=== PATIENT | male | born 1940 | race Caucasian/White ===

== ENCOUNTER 2024-02-13 13:48 | Outpatient (CLI) | payer BC, MEDICARE | END 2024-02-13 13:49 | disposition home or self-care (01) | LOC: BICMAMMO 13:48 | PROVIDERS: ATTEND Family Medicine Sports Medicine | DX: Z13.820 Encounter for screening for osteoporosis (principal); S52.532D Colles' fracture of left radius, subsequent encounter for closed fracture with routine healing; M81.0 Age-related osteoporosis without current pathological fracture | CPT/HCPCS: 77080 ==

== ENCOUNTER 2024-04-03 11:38 | Inpatient (IN) | payer BC, MEDICARE ==
[2024-04-03 13:16] LABS: Hematocrit 35.7 % (42.0-52.0); Hemoglobin 12.6 g/dL (14.0-18.0); Mean Corpuscular HGB CONC 35.3 g/dL (32.0-36.0); Mean Corpuscular Hemoglobin 32.1 pg (27.0-31.0); Mean Corpuscular Volume 90.8 fL (78.0-98.0); Platelet Count 136 10x3/uL (130-400); RBC Distribution Width 12.8 % (11.5-14.5); Red Blood Cell (RBC) Count 3.93 mill/uL (4.70-6.10)
[2024-04-03 13:36] LABS: ALT (SGPT) 13 U/L (8-55); AST (SGOT) 21 U/L (5-34); Albumin 3.7 g/dL (3.4-4.8); Alkaline Phosphatase 90 U/L (40-110); Anion Gap 11 mmol/L (10-20); BUN (Urea Nitrogen) 16 mg/dL (8.4-25.7); Calc. Creatinine Clearance 0 mL/min (70-130); Calcium 9.2 mg/dL (7.8-10.44); Carbon Dioxide 20 mmol/L (23-31); Chloride 100 mmol/L (98-107); Estimated GFR 90; Globulin 2.5 g/dL (2.4-3.5); Glucose 116 mg/dL (83-110); Potassium 4.3 mmol/L (3.5-5.1); Protein, Total 6.2 g/dL (5.8-8.1); Sodium 127 mmol/L (136-145)
[2024-04-03 13:46] LABS: Bacteria/HPF None Seen HPF (None Seen); Bilirubin Negative (Negative); Blood, Urine Negative (Negative); CAUTI Indications for Culture Dysuria,urgency,freq; Clarity Clear (Clear); Glucose, Urine (Dipstick) Normal (Negative); Ketone, Urine 10 mg/dL (Negative); Leukocyte 250 Leu/uL (Negative); Nitrite Negative (Negative); Protein, Urine (Dipstick) 30 mg/dL (Neg-Trace); Specific Gravity, Urine 1.027 (1.002-1.036); Squamous Epithelial None Seen HPF (0-3); WBC/HPF Greater than 50 HPF (0-3)
[2024-04-03 13:47] LABS: Urine Culture Reflex Yes Yes
[2024-04-03 14:06] LABS: Band 3 % (5-11); Burr Cells MODERATE= 6-15 cells HPF (0-1); Lymphocytes 19 % (21-51); Monocytes 3 % (0-10); Neutrophil 75 % (42-75); Platelet Adequacy Comment Platelets Normal
[2024-04-03 17:55] VITALS: BMI 26.1
[2024-04-03] MEDS ORDERED: Acetaminophen 650 MG Suppository PR PRN (17:57)
[2024-04-03] MEDS ORDERED: Ondansetron ODT 4 MG TAB PO PRN (17:57)
[2024-04-03] MEDS ORDERED: Ondansetron PF 4 MG/2 ML Vial IVP PRN (17:57)
[2024-04-03] MEDS: Sodium Chloride 0.9% 1,000 ML IV SCH (18:20)
[2024-04-03] MEDS: hydrALAZINE 25 MG TAB PO SCH (18:54)
[2024-04-03] MEDS: Flecainide Acetate 100 MG TAB PO SCH (20:23)
[2024-04-03] MEDS: Apixaban 5 MG TAB PO SCH (20:23)
[2024-04-03] MEDS: Atorvastatin Calcium 10 MG TAB PO SCH (20:23)
[2024-04-03] MEDS: Famotidine 20 MG TAB PO SCH (20:23)
[2024-04-03] MEDS: Melatonin 3 MG TAB PO PRN (20:23)
[2024-04-03] MEDS: Lorazepam 2 MG/ML VIAL SLOW IVP SCH (20:39)
[2024-04-03] MEDS ORDERED: hydrALAZINE 20 MG/ML VIAL SLOW IVP SCH (22:45)
[2024-04-03] MEDS: hydrALAZINE 20 MG/ML VIAL SLOW IVP PRN (23:22)
[2024-04-04] MEDS: Losartan 25 MG TAB PO SCH (08:27)
[2024-04-04] MEDS: Tamsulosin HCl 0.4 MG CAP PO SCH (08:28)
[2024-04-04] MEDS: Sodium Chloride 1 GM TAB PO SCH (08:29)
[2024-04-04 08:54] LABS: Hematocrit 34.8 % (42.0-52.0); Hemoglobin 12.3 g/dL (14.0-18.0); Mean Corpuscular HGB CONC 35.3 g/dL (32.0-36.0); Mean Corpuscular Hemoglobin 32.8 pg (27.0-31.0); Mean Corpuscular Volume 92.8 fL (78.0-98.0); Platelet Count 146 10x3/uL (130-400); RBC Distribution Width 12.7 % (11.5-14.5); Red Blood Cell (RBC) Count 3.75 mill/uL (4.70-6.10)
[2024-04-04 09:14] LABS: Anion Gap 10 mmol/L (10-20); BUN (Urea Nitrogen) 12 mg/dL (8.4-25.7); Calc. Creatinine Clearance 96 mL/min (70-130); Calcium 8.9 mg/dL (7.8-10.44); Carbon Dioxide 19 mmol/L (23-31); Chloride 102 mmol/L (98-107); Estimated GFR 93; Glucose 95 mg/dL (83-110); Potassium 3.8 mmol/L (3.5-5.1); Sodium 127 mmol/L (136-145)
[2024-04-04 09:40] LABS: Anisocytosis SLIGHT = 6-15 cells HPF (0-5); Band 4 % (5-11); Burr Cells SLIGHT = 2-5 cells HPF (0-1); Eosinophils 1 % (0-10); Lymphocytes 21 % (21-51); Macrocytosis SLIGHT = 6-15 cells HPF (0-5); Monocytes 5 % (0-10); Neutrophil 69 % (42-75); Ovalocytes SLIGHT = 2-5 cells HPF (0-1); Platelet Adequacy Comment Platelets Normal; Poikilocytosis SLIGHT = 6-15 cells HPF (0-5); Polychromasia SLIGHT = 2-3 cells HPF (0-2)
[2024-04-04] MEDS: Sodium Chloride 0.9% 1,000 ML IV SCH (10:30)
[2024-04-04] MEDS: Sodium Bicarbonate Tab 325 MG TAB PO SCH ×2 (11:21→14:32)
[2024-04-04 12:41] LABS: Anion Gap 14 mmol/L (10-20); BUN (Urea Nitrogen) 13 mg/dL (8.4-25.7); Calc. Creatinine Clearance 93 mL/min (70-130); Calcium 9.1 mg/dL (7.8-10.44); Carbon Dioxide 18 mmol/L (23-31); Chloride 103 mmol/L (98-107); Estimated GFR 92; Glucose 106 mg/dL (83-110); Potassium 3.8 mmol/L (3.5-5.1); Sodium 131 mmol/L (136-145)
[2024-04-05 06:30] LABS: Hematocrit 32.2 % (42.0-52.0); Hemoglobin 11.4 g/dL (14.0-18.0); Mean Corpuscular HGB CONC 35.4 g/dL (32.0-36.0); Mean Corpuscular Hemoglobin 32.8 pg (27.0-31.0); Mean Corpuscular Volume 92.5 fL (78.0-98.0); Mean Platelet Volume 8.1 fL (7.4-10.4); Platelet Count 146 10x3/uL (130-400); Red Blood Cell (RBC) Count 3.48 mill/uL (4.70-6.10)
[2024-04-05 06:58] LABS: Eosinophils 4 % (0-10); Hypochromia SLIGHT = 6-15 cells HPF (0-5); Lymphocytes 28 % (21-51); Monocytes 8 % (0-10); Neutrophil 59 % (42-75); Platelet Adequacy Comment Platelets Normal; Reactive Lymphocytes 1 % (0-10)
[2024-04-05 07:14] LABS: Anion Gap 9 mmol/L (10-20); BUN (Urea Nitrogen) 14 mg/dL (8.4-25.7); Calc. Creatinine Clearance 92 mL/min (70-130); Calcium 8.5 mg/dL (7.8-10.44); Carbon Dioxide 19 mmol/L (23-31); Chloride 107 mmol/L (98-107); Estimated GFR 92; Glucose 145 mg/dL (83-110); Potassium 3.5 mmol/L (3.5-5.1); Sodium 131 mmol/L (136-145)
[2024-04-05] MEDS ORDERED: Benzocaine/Menthol 1 LOZ LOZ PO PRN (11:31)
[2024-04-05] MEDS: Fluconazole 100 MG TAB PO SCH (20:28)
[2024-04-05] MEDS: traMADol HCl 50 MG TAB PO PRN (23:17)
[2024-04-06] MEDS: hydrALAZINE 25 MG TAB PO SCH ×2 (01:19→18:40)
[2024-04-06 06:46] LABS: Hematocrit 32.2 % (42.0-52.0); Hemoglobin 11.5 g/dL (14.0-18.0); Mean Corpuscular HGB CONC 35.7 g/dL (32.0-36.0); Mean Corpuscular Volume 92.3 fL (78.0-98.0); Mean Platelet Volume 7.6 fL (7.4-10.4); Platelet Count 136 10x3/uL (130-400); Red Blood Cell (RBC) Count 3.49 mill/uL (4.70-6.10)
[2024-04-06 06:53] LABS: Anion Gap 10 mmol/L (10-20); BUN (Urea Nitrogen) 12 mg/dL (8.4-25.7); Calc. Creatinine Clearance 101 mL/min (70-130); Calcium 8.5 mg/dL (7.8-10.44); Carbon Dioxide 19 mmol/L (23-31); Chloride 104 mmol/L (98-107); Estimated GFR 94; Glucose 105 mg/dL (83-110); Potassium 3.7 mmol/L (3.5-5.1); Sodium 129 mmol/L (136-145)
[2024-04-06 07:06] LABS: Band 1 % (5-11); Eosinophils 4 % (0-10); Hypochromia SLIGHT = 6-15 cells HPF (0-5); Lymphocytes 13 % (21-51); Monocytes 5 % (0-10); Neutrophil 77 % (42-75); Platelet Adequacy Comment Platelets Normal; Poikilocytosis SLIGHT = 6-15 cells HPF (0-5)
[2024-04-06] MEDS: Fluconazole 100 MG TAB PO SCH (08:43)
[2024-04-06] MEDS: Sodium Bicarbonate Tab 325 MG TAB PO SCH (15:05)
[2024-04-07 07:08] LABS: Hematocrit 31.5 % (42.0-52.0); Hemoglobin 11.1 g/dL (14.0-18.0); Mean Corpuscular HGB CONC 35.2 g/dL (32.0-36.0); Mean Corpuscular Hemoglobin 32.5 pg (27.0-31.0); Mean Corpuscular Volume 92.1 fL (78.0-98.0); Mean Platelet Volume 7.9 fL (7.4-10.4); Platelet Count 144 10x3/uL (130-400); RBC Distribution Width 12.9 % (11.5-14.5); Red Blood Cell (RBC) Count 3.42 mill/uL (4.70-6.10)
[2024-04-07] MEDS: ALENDRONATE 70 MG TAB PO SCH (07:15)
[2024-04-07 07:19] LABS: Anion Gap 10 mmol/L (10-20); BUN (Urea Nitrogen) 12 mg/dL (8.4-25.7); Calc. Creatinine Clearance 108 mL/min (70-130); Calcium 8.7 mg/dL (7.8-10.44); Carbon Dioxide 21 mmol/L (23-31); Chloride 102 mmol/L (98-107); Estimated GFR 96; Glucose 95 mg/dL (83-110); Potassium 3.7 mmol/L (3.5-5.1); Sodium 129 mmol/L (136-145)
[2024-04-07 07:34] LABS: Eosinophils 3 % (0-10); Hypochromia SLIGHT = 6-15 cells HPF (0-5); Lymphocytes 17 % (21-51); Monocytes 10 % (0-10); Neutrophil 65 % (42-75); Platelet Adequacy Comment Platelets Normal; Reactive Lymphocytes 3 % (0-10)
[2024-04-07] MEDS: Amlodipine 5 MG TAB PO SCH (10:39)
[2024-04-07] MEDS: Acetaminophen 325 MG TAB PO PRN (14:22)
[2024-04-08 06:49] LABS: Anion Gap 10 mmol/L (10-20); BUN (Urea Nitrogen) 14 mg/dL (8.4-25.7); Calc. Creatinine Clearance 101 mL/min (70-130); Calcium 8.6 mg/dL (7.8-10.44); Carbon Dioxide 22 mmol/L (23-31); Chloride 102 mmol/L (98-107); Estimated GFR 94; Glucose 106 mg/dL (83-110); Potassium 3.7 mmol/L (3.5-5.1); Sodium 130 mmol/L (136-145)
[2024-04-08] MEDS: Amlodipine 5 MG TAB PO SCH (08:13)
[2024-04-09 07:01] LABS: Anion Gap 11 mmol/L (10-20); BUN (Urea Nitrogen) 15 mg/dL (8.4-25.7); Calc. Creatinine Clearance 93 mL/min (70-130); Carbon Dioxide 22 mmol/L (23-31); Chloride 101 mmol/L (98-107); Estimated GFR 92; Glucose 109 mg/dL (83-110); Potassium 3.7 mmol/L (3.5-5.1); Sodium 130 mmol/L (136-145)
[2024-04-09] MEDS: Amlodipine 5 MG TAB PO SCH (10:07)
[2024-04-09] MEDS: Docusate 100 MG CAP PO PRN (15:14)
[2024-04-09] MEDS: Sodium Chloride 1 GM TAB PO SCH (15:14)
[2024-04-10 06:44] LABS: Anion Gap 10 mmol/L (10-20); BUN (Urea Nitrogen) 16 mg/dL (8.4-25.7); Calc. Creatinine Clearance 98 mL/min (70-130); Calcium 8.8 mg/dL (7.8-10.44); Carbon Dioxide 24 mmol/L (23-31); Chloride 99 mmol/L (98-107); Estimated GFR 93; Glucose 122 mg/dL (83-110); Potassium 3.8 mmol/L (3.5-5.1); Sodium 129 mmol/L (136-145)
[2024-04-10] MEDS: Amlodipine 5 MG TAB PO SCH (08:51)
[2024-04-10] MEDS: Albumin 25% 25 GM (100 mL) BOT IVPB SCH (13:11)
[2024-04-10 13:35] VITALS: BMI 26.1
[2024-04-11 10:47] LABS: Albumin 2.9 g/dL (3.4-4.8); Anion Gap 8 mmol/L (10-20); BUN (Urea Nitrogen) 17 mg/dL (8.4-25.7); BUN/Creatinine Ratio 22.97; Calc. Creatinine Clearance 84 mL/min (70-130); Calcium 9.2 mg/dL (7.8-10.44); Carbon Dioxide 24 mmol/L (23-31); Chloride 101 mmol/L (98-107); Estimated GFR 89; Glucose 137 mg/dL (83-110); Phosphorus 2.1 mg/dL (2.3-4.7); Sodium 129 mmol/L (136-145)
[2024-04-11] MEDS: PHOS-NAK 1 PKT PACK PO SCH (17:18)
[2024-04-11] MEDS: Albumin 25% 25 GM (100 mL) BOT IVPB SCH (17:18)
[2024-04-11] MEDS: Amoxicillin/Potassium Clav 875 MG TAB PO SCH (20:51)
[2024-04-12 07:33] LABS: Albumin 3.3 g/dL (3.4-4.8); Anion Gap 10 mmol/L (10-20); BUN (Urea Nitrogen) 15 mg/dL (8.4-25.7); BUN/Creatinine Ratio 23.81; Calc. Creatinine Clearance 99 mL/min (70-130); Calcium 9.2 mg/dL (7.8-10.44); Carbon Dioxide 23 mmol/L (23-31); Chloride 103 mmol/L (98-107); Estimated GFR 94; Glucose 93 mg/dL (83-110); Phosphorus 2.7 mg/dL (2.3-4.7); Sodium 132 mmol/L (136-145)
[2024-04-12] MEDS: Amlodipine 10 MG TAB PO SCH (08:33)
[2024-04-12] MEDS: Saccharomyces boulardii 250 MG CAP PO SCH (08:33)
[2024-04-13 06:51] LABS: Anion Gap 8 mmol/L (10-20); BUN (Urea Nitrogen) 15 mg/dL (8.4-25.7); Calc. Creatinine Clearance 98 mL/min (70-130); Calcium 9.4 mg/dL (7.8-10.44); Carbon Dioxide 24 mmol/L (23-31); Chloride 104 mmol/L (98-107); Estimated GFR 93; Glucose 101 mg/dL (83-110); Potassium 3.9 mmol/L (3.5-5.1); Sodium 132 mmol/L (136-145)
[2024-04-13 18:33] LABS: Bilirubin Negative (Negative); Blood, Urine Negative (Negative); Clarity Turbid (Clear); Glucose, Urine (Dipstick) Normal (Negative); Ketone, Urine Negative (Negative); Leukocyte 25 Leu/uL (Negative); Nitrite Negative (Negative); Protein, Urine (Dipstick) Negative (Neg-Trace); Specific Gravity, Urine 1.019 (1.002-1.036); Urobilinogen 12 mg/dL (Less than 2); pH, Urine 7.5 (5.0-9.0)
[2024-04-13 18:43] LABS: RBC/HPF None Seen HPF (0-3); Squamous Epithelial None Seen HPF (0-3); WBC/HPF None Seen HPF (0-3)
[2024-04-14 06:59] LABS: Anion Gap 10 mmol/L (10-20); BUN (Urea Nitrogen) 18 mg/dL (8.4-25.7); Calc. Creatinine Clearance 92 mL/min (70-130); Calcium 9.4 mg/dL (7.8-10.44); Carbon Dioxide 22 mmol/L (23-31); Chloride 103 mmol/L (98-107); Estimated GFR 92; Glucose 106 mg/dL (83-110); Sodium 131 mmol/L (136-145)
[2024-04-15 07:04] LABS: Anion Gap 7 mmol/L (10-20); BUN (Urea Nitrogen) 19 mg/dL (8.4-25.7); Calc. Creatinine Clearance 92 mL/min (70-130); Calcium 9.4 mg/dL (7.8-10.44); Carbon Dioxide 23 mmol/L (23-31); Chloride 105 mmol/L (98-107); Estimated GFR 92; Glucose 104 mg/dL (83-110); Potassium 3.9 mmol/L (3.5-5.1); Sodium 131 mmol/L (136-145)
[2024-04-15] MEDS: Tolvaptan 15 MG TAB PO SCH (08:49)
[2024-04-15 15:05] LABS: Anion Gap 10 mmol/L (10-20); BUN (Urea Nitrogen) 19 mg/dL (8.4-25.7); Calc. Creatinine Clearance 92 mL/min (70-130); Calcium 9.3 mg/dL (7.8-10.44); Carbon Dioxide 24 mmol/L (23-31); Chloride 101 mmol/L (98-107); Estimated GFR 92; Glucose 119 mg/dL (83-110); Potassium 4.3 mmol/L (3.5-5.1); Sodium 131 mmol/L (136-145)
[2024-04-16 08:10] LABS: Hematocrit 34.4 % (42.0-52.0); Hemoglobin 11.7 g/dL (14.0-18.0); Mean Corpuscular Hemoglobin 32.3 pg (27.0-31.0); Mean Platelet Volume 7.8 fL (7.4-10.4); Platelet Count 328 10x3/uL (130-400); Red Blood Cell (RBC) Count 3.62 mill/uL (4.70-6.10)
[2024-04-16 08:23] LABS: Anion Gap 12 mmol/L (10-20); BUN (Urea Nitrogen) 14 mg/dL (8.4-25.7); Calc. Creatinine Clearance 87 mL/min (70-130); Calcium 9.3 mg/dL (7.8-10.44); Carbon Dioxide 25 mmol/L (23-31); Chloride 107 mmol/L (98-107); Estimated GFR 90; Glucose 98 mg/dL (83-110); Potassium 4.1 mmol/L (3.5-5.1); Sodium 140 mmol/L (136-145)
[2024-04-16 08:36] LABS: Burr Cells SLIGHT = 2-5 cells HPF (0-1); Eosinophils 6 % (0-10); Lymphocytes 21 % (21-51); Monocytes 7 % (0-10); Neutrophil 65 % (42-75); Platelet Adequacy Comment Platelets Normal; Schistocytes SLIGHT = 2-5 cells HPF (0-1)
[2024-04-16] MEDS: Sodium Chloride 1 GM TAB PO SCH (10:16)
[2024-04-17 08:05] LABS: Anion Gap 10 mmol/L (10-20); BUN (Urea Nitrogen) 17 mg/dL (8.4-25.7); Calc. Creatinine Clearance 96 mL/min (70-130); Calcium 9.1 mg/dL (7.8-10.44); Carbon Dioxide 22 mmol/L (23-31); Chloride 104 mmol/L (98-107); Estimated GFR 93; Glucose 91 mg/dL (83-110); Potassium 3.9 mmol/L (3.5-5.1); Sodium 132 mmol/L (136-145)
[2024-04-17 08:12] LABS: Hemoglobin 11.3 g/dL (14.0-18.0); Mean Corpuscular HGB CONC 34.2 g/dL (32.0-36.0); Mean Corpuscular Hemoglobin 32.5 pg (27.0-31.0); Mean Corpuscular Volume 94.8 fL (78.0-98.0); Platelet Count 316 10x3/uL (130-400); RBC Distribution Width 13.1 % (11.5-14.5); Red Blood Cell (RBC) Count 3.48 mill/uL (4.70-6.10)
[2024-04-17 10:29] LABS: Band 1 % (5-11); Burr Cells MODERATE= 6-15 cells HPF (0-1); Eosinophils 2 % (0-10); Lymphocytes 19 % (21-51); Monocytes 5 % (0-10); Neutrophil 72 % (42-75); Platelet Adequacy Comment Platelets Normal; Poikilocytosis SLIGHT = 6-15 cells HPF (0-5); Reactive Lymphocytes 1 % (0-10)
[2024-04-18 06:43] LABS: Hemoglobin 11.4 g/dL (14.0-18.0); Mean Corpuscular HGB CONC 34.5 g/dL (32.0-36.0); Mean Corpuscular Hemoglobin 32.7 pg (27.0-31.0); Mean Corpuscular Volume 94.6 fL (78.0-98.0); Platelet Count 317 10x3/uL (130-400); RBC Distribution Width 13.1 % (11.5-14.5); Red Blood Cell (RBC) Count 3.49 mill/uL (4.70-6.10)
[2024-04-18 06:50] LABS: Anion Gap 8 mmol/L (10-20); BUN (Urea Nitrogen) 19 mg/dL (8.4-25.7); Calc. Creatinine Clearance 93 mL/min (70-130); Calcium 9.1 mg/dL (7.8-10.44); Carbon Dioxide 25 mmol/L (23-31); Chloride 102 mmol/L (98-107); Estimated GFR 92; Glucose 88 mg/dL (83-110); Sodium 131 mmol/L (136-145)
[2024-04-18 07:22] LABS: Burr Cells MODERATE= 6-15 cells HPF (0-1); Eosinophils 2 % (0-10); Lymphocytes 33 % (21-51); Monocytes 4 % (0-10); Neutrophil 59 % (42-75); Platelet Adequacy Comment Platelets Normal; Poikilocytosis MODERATE=16-30 cells HPF (0-5); Schistocytes SLIGHT = 2-5 cells HPF (0-1)
[2024-04-18] MEDS: Sodium Chloride 1 GM TAB PO SCH (08:24)
[2024-04-18] MEDS: Torsemide 10 MG TAB PO SCH (10:55)
[2024-04-19 07:53] VITALS: TEMP 97.9
[2024-04-19 09:49] LABS: Anion Gap 9 mmol/L (10-20); BUN (Urea Nitrogen) 20 mg/dL (8.4-25.7); Calc. Creatinine Clearance 88 mL/min (70-130); Calcium 9.1 mg/dL (7.8-10.44); Carbon Dioxide 26 mmol/L (23-31); Chloride 101 mmol/L (98-107); Estimated GFR 90; Glucose 124 mg/dL (83-110); Potassium 3.9 mmol/L (3.5-5.1); Sodium 132 mmol/L (136-145)
[2024-04-19 11:49] VITALS: BP 102/59
[2024-04-20] MEDS ORDERED: Amlodipine 5 MG TAB PO SCH (09:00)
== END 2024-04-19 17:17 | disposition critical access hospital (66) | DRG 643 ==
LOC: ERS 11:38 → T4-A 16:01 → UNDODISIN 04-12 12:50
PROVIDERS: ADMIT Family Medicine; ATTEND Family Medicine
PROC: 30233J1 Transfusion of Nonautologous Serum Albumin into Peripheral Vein, Percutaneous Approach (ICD-10-PCS; principal; 2024-04-10)
DX: E22.2 Syndrome of inappropriate secretion of antidiuretic hormone (principal); G93.41 Metabolic encephalopathy; E87.20 Acidosis, unspecified; B37.49 Other urogenital candidiasis; L03.113 Cellulitis of right upper limb; S09.90XD Unspecified injury of head, subsequent encounter; W18.30XD Fall on same level, unspecified, subsequent encounter; Z79.01 Long term (current) use of anticoagulants; I10 Essential (primary) hypertension; E78.5 Hyperlipidemia, unspecified; N40.0 Benign prostatic hyperplasia without lower urinary tract symptoms; Z79.899 Other long term (current) drug therapy; Z98.41 Cataract extraction status, right eye; Z98.42 Cataract extraction status, left eye; Z98.890 Other specified postprocedural states; I48.0 Paroxysmal atrial fibrillation; Z66 Do not resuscitate; E83.39 Other disorders of phosphorus metabolism; S50.01XA Contusion of right elbow, initial encounter; S29.9XXA Unspecified injury of thorax, initial encounter; I48.91 Unspecified atrial fibrillation; W19.XXXA Unspecified fall, initial encounter
CPT/HCPCS: 36415; 70450; 71046; 72125; 80048; 80053; 80069; 81001; 82040; 83880; 83930; 83935; 84300; 84550; 85025; 87086; 93005; 93010; 96374; 96375; G0390; J0360; J2060; J2272; J2405; J7030; P9047

== ENCOUNTER 2024-07-12 18:05 | Inpatient (IN) | payer BC, MEDICARE ==
[2024-07-12 19:11] LABS: Bilirubin Negative (Negative); Blood, Urine Negative (Negative); CAUTI Indications for Culture Dysuria,urgency,freq; Clarity Clear (Clear); Glucose, Urine (Dipstick) Normal (Negative); Ketone, Urine Negative (Negative); Leukocyte 500 Leu/uL (Negative); Nitrite Negative (Negative); Protein, Urine (Dipstick) Negative (Neg-Trace); Specific Gravity, Urine 1.011 (1.002-1.036); Squamous Epithelial 0-3 HPF (0-3); Urobilinogen 3 mg/dL (Less than 2); WBC/HPF Greater than 50 HPF (0-3); Yeast-Budding Rare HPF (None Seen); pH, Urine 6.5 (5.0-9.0)
[2024-07-12 19:11] LABS: ALT (SGPT) 14 U/L (8-55); AST (SGOT) 18 U/L (5-34); Albumin 3.6 g/dL (3.4-4.8); Alkaline Phosphatase 116 U/L (40-110); Anion Gap 11 mmol/L (10-20); BUN (Urea Nitrogen) 16 mg/dL (8.4-25.7); Bilirubin, Total 0.5 mg/dL (0.2-1.2); Calc. Creatinine Clearance 0 mL/min (70-130); Calcium 9.2 mg/dL (7.8-10.44); Carbon Dioxide 22 mmol/L (23-31); Chloride 102 mmol/L (98-107); Estimated GFR 85; Globulin 2.6 g/dL (2.4-3.5); Glucose 129 mg/dL (83-110); Magnesium 2.2 mg/dL (1.6-2.6); Potassium 4.4 mmol/L (3.5-5.1); Protein, Total 6.2 g/dL (5.8-8.1); Sodium 131 mmol/L (136-145)
[2024-07-12 19:17] LABS: Troponin I Less than 0.010 ng/mL (< 0.028)
[2024-07-12 19:33] LABS: Hematocrit 39.7 % (42.0-52.0); Hemoglobin 13.2 g/dL (14.0-18.0); Mean Corpuscular HGB CONC 33.2 g/dL (32.0-36.0); Mean Corpuscular Hemoglobin 33.9 pg (27.0-31.0); Mean Corpuscular Volume 102.1 fL (78.0-98.0); Mean Platelet Volume 9.5 fL (7.4-10.4); Platelet Count 165 10x3/uL (130-400); RBC Distribution Width 12.6 % (11.5-14.5); Red Blood Cell (RBC) Count 3.89 mill/uL (4.70-6.10)
[2024-07-12 19:34] LABS: Bacteria/HPF 1+ HPF (None Seen)
[2024-07-12 19:37] LABS: Transitional Epithelial 0-3 HPF (None Seen)
[2024-07-12 19:41] LABS: Urine Culture Reflex Yes Yes
[2024-07-12 20:00] LABS: Anisocytosis SLIGHT = 6-15 cells HPF (0-5); Band 3 % (5-11); Burr Cells MODERATE= 6-15 cells HPF (0-1); Eosinophils 9 % (0-10); Lymphocytes 38 % (21-51); Macrocytosis SLIGHT = 6-15 cells HPF (0-5); Monocytes 3 % (0-10); Myelocyte 2 % (0-0); Neutrophil 46 % (42-75); Ovalocytes SLIGHT = 2-5 cells HPF (0-1); Platelet Adequacy Comment Platelets Normal; Poikilocytosis MODERATE=16-30 cells HPF (0-5); Polychromasia SLIGHT = 2-3 cells HPF (0-2); Tear Drops SLIGHT = 2-5 cells HPF (0-1); Toxic Granulation SLIGHT
[2024-07-12] MEDS ORDERED: Ondansetron PF 4 MG/2 ML Vial IVP PRN (20:45)
[2024-07-12] MEDS ORDERED: Ondansetron ODT 4 MG TAB PO PRN (20:45)
[2024-07-12] MEDS ORDERED: traMADol HCl 50 MG TAB PO PRN (20:45)
[2024-07-12] MEDS ORDERED: cefTRIAXone (ROCEPHIN) 2 GM VIAL ONE (20:59)
[2024-07-12] MEDS ORDERED: Sodium Chloride 0.9% 100 ML ONE (21:01)
[2024-07-12] MEDS: Famotidine/PF 20 mg/2ml Vial SLOW IVP SCH (23:50)
[2024-07-12] MEDS: hydrALAZINE 20 MG/ML VIAL SLOW IVP SCH (23:50)
[2024-07-12] MEDS: Famotidine 20 MG TAB PO SCH (23:53)
[2024-07-12 23:55] VITALS: BMI 32.1
[2024-07-13 01:16] LABS: Influenza A by NAA Not Detected (NotDetected); Influenza B by NAA Not Detected (NotDetected); RSV by NAA Not Detected (NotDetected); SARS-CoV-2 NAA Rapid Test Not Detected (NotDetected)
[2024-07-13 04:22] LABS: Hematocrit 36.6 % (42.0-52.0); Hemoglobin 12.4 g/dL (14.0-18.0); Mean Corpuscular HGB CONC 33.9 g/dL (32.0-36.0); Mean Corpuscular Volume 97.3 fL (78.0-98.0); Mean Platelet Volume 7.9 fL (7.4-10.4); Platelet Count 190 10x3/uL (130-400); RBC Distribution Width 12.5 % (11.5-14.5); Red Blood Cell (RBC) Count 3.76 mill/uL (4.70-6.10)
[2024-07-13 04:43] LABS: Anion Gap 10 mmol/L (10-20); BUN (Urea Nitrogen) 16 mg/dL (8.4-25.7); Calc. Creatinine Clearance 97 mL/min (70-130); Carbon Dioxide 20 mmol/L (23-31); Chloride 104 mmol/L (98-107); Sodium 130 mmol/L (136-145)
[2024-07-13 04:44] LABS: ALT (SGPT) 12 U/L (8-55); AST (SGOT) 15 U/L (5-34); Albumin 3.3 g/dL (3.4-4.8); Alkaline Phosphatase 88 U/L (40-110); Bilirubin, Total 0.6 mg/dL (0.2-1.2); Calcium 8.9 mg/dL (7.8-10.44); Estimated GFR 90; Globulin 2.2 g/dL (2.4-3.5); Glucose 102 mg/dL (83-110); Protein, Total 5.5 g/dL (5.8-8.1)
[2024-07-13 04:52] LABS: Anisocytosis SLIGHT = 6-15 cells HPF (0-5); Band 5 % (5-11); Burr Cells SLIGHT = 2-5 cells HPF (0-1); Lymphocytes 32 % (21-51); Monocytes 2 % (0-10); Neutrophil 60 % (42-75); Platelet Adequacy Comment Platelets Normal; Poikilocytosis SLIGHT = 6-15 cells HPF (0-5); Toxic Granulation SLIGHT
[2024-07-13] MEDS: Tamsulosin HCl 0.4 MG CAP PO SCH (09:02)
[2024-07-13] MEDS: Apixaban 5 MG TAB PO SCH (09:02)
[2024-07-13] MEDS: Losartan 25 MG TAB PO SCH (09:02)
[2024-07-13] MEDS: QUEtiapine 25 MG TAB PO SCH ×2 (09:02→19:59)
[2024-07-13] MEDS: Sodium Chloride 1 GM TAB PO SCH (09:03)
[2024-07-13 10:43] VITALS: BMI 32.1
[2024-07-13] MEDS: OLANZapine 10 MG VIAL IM SCH (13:53)
[2024-07-13] MEDS: Sterile Water 10 ML VIAL FS SCH (13:54)
[2024-07-13] MEDS: Flecainide Acetate 100 MG TAB PO SCH (16:09)
[2024-07-13] MEDS: cefTRIAXone\\ROCEPHIN 1 GM in Sodium Chloride 0.9% 100 ML IVPB SCH (19:58)
[2024-07-13] MEDS: Melatonin 3 MG TAB PO SCH (19:59)
[2024-07-14] MEDS ORDERED: Sterile Water 10 ML VIAL FS PRN (02:00)
[2024-07-14] MEDS: OLANZapine 10 MG VIAL IM SCH (02:09)
[2024-07-14 05:32] LABS: Anion Gap 9 mmol/L (10-20); BUN (Urea Nitrogen) 14 mg/dL (8.4-25.7); Calc. Creatinine Clearance 80 mL/min (70-130); Calcium 8.8 mg/dL (7.8-10.44); Carbon Dioxide 22 mmol/L (23-31); Chloride 104 mmol/L (98-107); Estimated GFR 85; Glucose 99 mg/dL (83-110); Potassium 3.8 mmol/L (3.5-5.1); Sodium 131 mmol/L (136-145)
[2024-07-15 05:26] LABS: Hematocrit 37.2 % (42.0-52.0); Hemoglobin 13.1 g/dL (14.0-18.0); Mean Corpuscular HGB CONC 35.2 g/dL (32.0-36.0); Mean Corpuscular Hemoglobin 33.7 pg (27.0-31.0); Mean Corpuscular Volume 95.6 fL (78.0-98.0); Mean Platelet Volume 7.6 fL (7.4-10.4); Platelet Count 181 10x3/uL (130-400); RBC Distribution Width 12.4 % (11.5-14.5); Red Blood Cell (RBC) Count 3.89 mill/uL (4.70-6.10)
[2024-07-15 05:29] LABS: Anion Gap 11 mmol/L (10-20); BUN (Urea Nitrogen) 16 mg/dL (8.4-25.7); Calc. Creatinine Clearance 86 mL/min (70-130); Calcium 9.1 mg/dL (7.8-10.44); Carbon Dioxide 22 mmol/L (23-31); Chloride 102 mmol/L (98-107); Estimated GFR 87; Glucose 94 mg/dL (83-110); Potassium 3.7 mmol/L (3.5-5.1); Sodium 131 mmol/L (136-145)
[2024-07-15 06:11] LABS: Anisocytosis SLIGHT = 6-15 cells HPF (0-5); Band 1 % (5-11); Burr Cells SLIGHT = 2-5 cells HPF (0-1); Eosinophils 6 % (0-10); Lymphocytes 22 % (21-51); Macrocytosis SLIGHT = 6-15 cells HPF (0-5); Metamyelocyte 1 % (0-0); Monocytes 5 % (0-10); Myelocyte 3 % (0-0); Neutrophil 62 % (42-75); Ovalocytes SLIGHT = 2-5 cells HPF (0-1); Platelet Adequacy Comment Platelets Normal; Polychromasia SLIGHT = 2-3 cells HPF (0-2)
[2024-07-15] MEDS: Bisacodyl 5 MG TAB PO SCH (10:59)
[2024-07-15] MEDS: FLU (Fluad Triv) TS24-25 (65UP)/MF59C/PF 45 MCG/0.5 ML Syringe IM ONE (14:46)
[2024-07-16 05:01] LABS: Anion Gap 9 mmol/L (10-20); BUN (Urea Nitrogen) 18 mg/dL (8.4-25.7); Calc. Creatinine Clearance 80 mL/min (70-130); Calcium 8.8 mg/dL (7.8-10.44); Carbon Dioxide 23 mmol/L (23-31); Chloride 102 mmol/L (98-107); Estimated GFR 85; Glucose 100 mg/dL (83-110); Sodium 130 mmol/L (136-145)
[2024-07-16 05:19] LABS: Hematocrit 35.1 % (42.0-52.0); Hemoglobin 12.2 g/dL (14.0-18.0); Mean Corpuscular HGB CONC 34.8 g/dL (32.0-36.0); Mean Corpuscular Volume 97.8 fL (78.0-98.0); Mean Platelet Volume 7.8 fL (7.4-10.4); Platelet Count 185 10x3/uL (130-400); RBC Distribution Width 12.4 % (11.5-14.5); Red Blood Cell (RBC) Count 3.59 mill/uL (4.70-6.10)
[2024-07-16 08:48] LABS: Band 1 % (5-11); Burr Cells SLIGHT = 2-5 cells HPF (0-1); Eosinophils 5 % (0-10); Lymphocytes 29 % (21-51); Metamyelocyte 1 % (0-0); Monocytes 7 % (0-10); Neutrophil 41 % (42-75); Platelet Adequacy Comment Platelets Normal; Polychromasia SLIGHT = 2-3 cells HPF (0-2); Reactive Lymphocytes 1 % (0-10)
[2024-07-16 08:50] LABS: Other Cell Types 14.9
[2024-07-17] MEDS ORDERED: Bisacodyl 10 MG SUPP PR PRN (08:31)
[2024-07-17] MEDS: FLU (Fluad Triv) TS24-25 (65UP)/MF59C/PF 45 MCG/0.5 ML Syringe IM ONE (11:49)
[2024-07-17] MEDS: Bisacodyl 10 MG SUPP PR SCH (18:05)
[2024-07-17] MEDS: Acetaminophen 325 MG TAB PO PRN (20:52)
[2024-07-17] MEDS: Atorvastatin Calcium 10 MG TAB PO SCH (20:52)
[2024-07-18 08:10] VITALS: TEMP 98.6
[2024-07-18 11:04] VITALS: BP 131/78
== END 2024-07-18 11:27 | DRG 884 ==
LOC: ERS 18:05 → 2NO 20:45 → OBSVTOIN 07-14 13:54
PROVIDERS: ADMIT Internal Medicine; ATTEND Internal Medicine
DX: F03.918 Unspecified dementia, unspecified severity, with other behavioral disturbance (principal); G93.41 Metabolic encephalopathy; F05 Delirium due to known physiological condition; E22.2 Syndrome of inappropriate secretion of antidiuretic hormone; N40.0 Benign prostatic hyperplasia without lower urinary tract symptoms; K59.00 Constipation, unspecified; Z79.01 Long term (current) use of anticoagulants; I10 Essential (primary) hypertension; E78.5 Hyperlipidemia, unspecified; I48.0 Paroxysmal atrial fibrillation; Z79.899 Other long term (current) drug therapy; Z66 Do not resuscitate
CPT/HCPCS: 0241U; 36415; 70450; 71045; 74018; 74176; 80048; 80053; 81001; 82140; 83605; 83735; 83880; 84145; 84484; 85025; 85060; 87040; 87086; 88184; 90653; 93005; 93010; 96365; 96372; 96375; G0378; J0360; J0696; J3490

== ENCOUNTER → 2024-07-30 | Emergency (ER) | payer BC, MEDICARE ==
[~2024-07-30] MED LIST: Ciprofloxacin 500 MG TAB ONE; Ibuprofen 200 MG TAB ONE
[2024-07-30 16:34] LABS: #Basophils 0.05 10x3/uL (0.0-0.2); %Basophils 0.4 % (0.0-1.0); %Eosinophils 0.6 % (0.0-10.0); %Lymphocytes 28.1 % (21.0-51.0); %Monocytes 7.9 % (0.0-10.0); Hematocrit 37.6 % (42.0-52.0); Hemoglobin 13.2 g/dL (14.0-18.0); Mean Corpuscular HGB CONC 35.1 g/dL (32.0-36.0); Mean Corpuscular Hemoglobin 34.5 pg (27.0-31.0); Mean Corpuscular Volume 98.2 fL (78.0-98.0); Platelet Count 220 10x3/uL (130-400); RBC Distribution Width 12.3 % (11.5-14.5); Red Blood Cell (RBC) Count 3.83 mill/uL (4.70-6.10)
[2024-07-30 17:00] LABS: ALT (SGPT) 21 U/L (8-55); AST (SGOT) 29 U/L (5-34); Albumin 3.5 g/dL (3.4-4.8); Alkaline Phosphatase 80 U/L (40-110); Anion Gap 15 mmol/L (10-20); BUN (Urea Nitrogen) 13 mg/dL (8.4-25.7); Bilirubin, Total 1.6 mg/dL (0.2-1.2); Calc. Creatinine Clearance 0 mL/min (70-130); Calcium 9.2 mg/dL (7.8-10.44); Carbon Dioxide 18 mmol/L (23-31); Chloride 104 mmol/L (98-107); Estimated GFR 85; Globulin 2.4 g/dL (2.4-3.5); Glucose 120 mg/dL (83-110); Potassium 3.8 mmol/L (3.5-5.1); Protein, Total 5.9 g/dL (5.8-8.1); Sodium 133 mmol/L (136-145)
[2024-07-30 17:08] LABS: Troponin I 0.021 ng/mL (< 0.028)
[2024-07-30 19:19] LABS: Bilirubin Negative (Negative); Blood, Urine Trace (Negative); CAUTI Indications for Culture Alt mental st,lethar; Clarity Clear (Clear); Glucose, Urine (Dipstick) Normal (Negative); Ketone, Urine 20 mg/dL (Negative); Leukocyte 250 Leu/uL (Negative); Nitrite Negative (Negative); Protein, Urine (Dipstick) 10 mg/dL (Neg-Trace); Squamous Epithelial 0-3 HPF (0-3); Urobilinogen 6 mg/dL (Less than 2); WBC/HPF 21-50 HPF (0-3); pH, Urine 5.5 (5.0-9.0)
[2024-07-30 20:11] LABS: Bacteria/HPF Rare-Few HPF (None Seen); Renal Epithelial 0-3 HPF (None Seen)
[2024-07-30 20:13] LABS: Urine Culture Reflex Yes Yes
== END ==
LOC: ERS 15:08
DX: R50.9 Fever, unspecified (principal); N39.0 Urinary tract infection, site not specified; I10 Essential (primary) hypertension
CPT/HCPCS: 36415; 51702; 70450; 71045; 80053; 81001; 83605; 84145; 84484; 85025; 87086; 87428; 93005

== ENCOUNTER 2024-08-03 12:32 | Emergency (ER) | payer BC, MEDICARE ==
[2024-08-03 14:09] LABS: Bacteria/HPF None Seen HPF (None Seen); Bilirubin Negative (Negative); Blood, Urine Negative (Negative); CAUTI Indications for Culture Acute Hematuria; Clarity Turbid (Clear); Glucose, Urine (Dipstick) Normal (Negative); Ketone, Urine Negative (Negative); Leukocyte 250 Leu/uL (Negative); Nitrite Negative (Negative); Protein, Urine (Dipstick) Negative (Neg-Trace); RBC/HPF 0-3 HPF (0-3); Specific Gravity, Urine 1.009 (1.002-1.036); Squamous Epithelial 0-3 HPF (0-3); Urobilinogen Greater than 12 mg/dL (Less than 2); WBC/HPF 21-50 HPF (0-3)
[2024-08-03 14:10] LABS: Urine Culture Reflex Yes Yes
== END 2024-08-03 15:40 ==
LOC: ERS 12:32
DX: Z71.1 Person with feared health complaint in whom no diagnosis is made (principal); I10 Essential (primary) hypertension; Z55.6 Problems related to health literacy
CPT/HCPCS: 81001; 87086; 93005; 99284

== ENCOUNTER 2024-09-20 08:28 | Outpatient (CLI) | payer MEDICARE, BC ==
[2024-09-20] MEDS ORDERED: Iopamidol 370 76% 100 ML VIAL ONE (15:16)
== END 2024-09-20 08:29 | disposition home or self-care (01) ==
LOC: CT 08:28
PROVIDERS: ATTEND Internal Medicine Hematology & Oncology
DX: C83.05 Small cell B-cell lymphoma, lymph nodes of inguinal region and lower limb (principal); E53.9 Vitamin B deficiency, unspecified; I25.10 Atherosclerotic heart disease of native coronary artery without angina pectoris; J94.8 Other specified pleural conditions; N28.1 Cyst of kidney, acquired; N40.0 Benign prostatic hyperplasia without lower urinary tract symptoms; N32.89 Other specified disorders of bladder; S22.42XD Multiple fractures of ribs, left side, subsequent encounter for fracture with routine healing; S22.03 Fracture of third thoracic vertebra; S22.041D Stable burst fracture of fourth thoracic vertebra, subsequent encounter for fracture with routine healing
CPT/HCPCS: 71260; 74177; Q9967

== ENCOUNTER 2024-10-08 12:13 | Inpatient (IN) | payer BC, MEDICARE ==
[2024-10-08] MEDS ORDERED: Cefepime 2 GM VIAL ONE (12:43)
[2024-10-08] MEDS ORDERED: Haloperidol Lactate 5 MG/ML VIAL ONE (12:43)
[2024-10-08] MEDS ORDERED: Sodium Chloride 0.9% 100 ML ONE (12:46)
[2024-10-08 12:53] LABS: Actual Bicarbonate (HCO3v) 22.7 mEq/L (22-28); Analyzer IN Cardio ER; Base Excess -0.8 mEq/L (-2.0 to +3.0); Calcium, Ionized (venous) 1.16 mmol/L (1.16-1.32); Chloride (VBG) 102 mmol/L (98-106); Hematocrit-VBG 39 % (42.0-52.0); Hemoglobin (Hb) 13.3 g/dL (12.6-17.4); Potassium (VBG) 4.55 mmol/L (3.70-5.30); Sodium 138 mmol/L (133-146); pH (venous) 7.441 (7.32-7.43)
[2024-10-08 13:26] LABS: ALT (SGPT) 12 U/L (Less than 45); AST (SGOT) 19 U/L (11-34); Albumin 2.8 g/dL (3.1-4.5); Alkaline Phosphatase 163 U/L (40-110); Anion Gap 14 mmol/L (10-20); BUN (Urea Nitrogen) 13 mg/dL (8.4-25.7); Bilirubin, Total 1.5 mg/dL (0.3-1.2); Calc. Creatinine Clearance 0 mL/min (70-130); Calcium 8.7 mg/dL (7.8-10.44); Carbon Dioxide 19 mmol/L (23-31); Chloride 106 mmol/L (98-107); Estimated GFR 79; Globulin 3.1 g/dL (2.4-3.5); Glucose 108 mg/dL (83-110); Magnesium 1.8 mg/dL (1.6-2.6); Potassium 4.4 mmol/L (3.5-5.1); Protein, Total 5.9 g/dL (5.8-8.1); Sodium 135 mmol/L (136-145)
[2024-10-08 13:33] LABS: Troponin I 0.011 ng/mL (< 0.028)
[2024-10-08] MEDS ORDERED: CALCIUM GLUC 1 GM/NS 50 ML IV Bag ONE (13:36)
[2024-10-08 13:38] LABS: Hematocrit 40.1 % (42.0-52.0); Hemoglobin 13.2 g/dL (14.0-18.0); Mean Corpuscular HGB CONC 32.9 g/dL (32.0-36.0); Mean Corpuscular Hemoglobin 33.5 pg (27.0-31.0); Mean Corpuscular Volume 101.8 fL (78.0-98.0); Mean Platelet Volume 8.8 fL (7.4-10.4); Platelet Count 156 10x3/uL (130-400); RBC Distribution Width 14.7 % (11.5-14.5); Red Blood Cell (RBC) Count 3.94 mill/uL (4.70-6.10)
[2024-10-08 13:48] LABS: Anisocytosis SLIGHT = 6-15 cells HPF (0-5); Band 1 % (5-11); Eosinophils 2 % (0-10); Large Platelets 16.8 % (0-5); Lymphocytes 71 % (21-51); Macrocytosis SLIGHT = 6-15 cells HPF (0-5); Monocytes 7 % (0-10); Neutrophil 8 % (42-75); Platelet Adequacy Comment Platelets Normal; Poikilocytosis SLIGHT = 6-15 cells HPF (0-5); Polychromasia SLIGHT = 2-3 cells HPF (0-2); Schistocytes SLIGHT = 2-5 cells HPF (0-1); Smudge Cells 47.5 %
[2024-10-08] MEDS ORDERED: Midazolam HCl 2 mg/2 ml Vial ONE ×2 (14:27→18:49)
[2024-10-08 15:23] LABS: Bacteria/HPF 2+ HPF (None Seen); Bilirubin Negative (Negative); Blood, Urine 1+ (Negative); CAUTI Indications for Culture Dysuria,urgency,freq; Clarity Turbid (Clear); Glucose, Urine (Dipstick) Normal (Negative); Ketone, Urine Negative (Negative); Leukocyte 250 Leu/uL (Negative); Nitrite 1+ (Negative); Protein, Urine (Dipstick) 50 mg/dL (Neg-Trace); Specific Gravity, Urine 1.017 (1.002-1.036); Squamous Epithelial 0-3 HPF (0-3); WBC/HPF Greater than 50 HPF (0-3)
[2024-10-08] MEDS ORDERED: Acetaminophen 650 MG Suppository ONE (15:29)
[2024-10-08] MEDS ORDERED: Magnesium 2 GM/50 ML BAG (IN WATER) ONE ×2 (15:30→17:13)
[2024-10-08 15:38] LABS: Urine Culture Reflex Yes Yes; Yeast-Budding None Seen HPF (None Seen)
[2024-10-08] MEDS ORDERED: Communication Order-Pharmacy FS ONE (16:19)
[2024-10-08] MEDS ORDERED: Senokot S 8.6-50 MG TAB PO PRN (16:22)
[2024-10-08] MEDS ORDERED: Acetaminophen 650 MG Suppository PR PRN (16:22)
[2024-10-08] MEDS ORDERED: Bisacodyl 5 MG TAB PO PRN (16:22)
[2024-10-08] MEDS ORDERED: Acetaminophen 325 MG TAB PO PRN (16:22)
[2024-10-08] MEDS ORDERED: NOREPINEPHRINE 8 MG/250 ML-D5W 250 ML IVPB SCH (16:30)
[2024-10-08 16:42] LABS: INR-International Normal Ratio 1.5; PTT 41.5 sec (22.9-36.1); Prothrombin Time 18.1 sec (12.0-14.7)
[2024-10-08 17:01] VITALS: BMI 20.6
[2024-10-08] MEDS: Vancomycin (BATCH) 1.75 GM in Premix 1 BAG IVPB SCH (17:48)
[2024-10-08 18:05] LABS: Troponin I 0.033 ng/mL (< 0.028)
[2024-10-08] MEDS ORDERED: EPINEPHrine 1 MG/ML VIAL ONE (18:21)
[2024-10-08] MEDS ORDERED: EPINEPHrine 1 MG/10 ML Abboject SYRINGE ONE (18:22)
[2024-10-08] MEDS ORDERED: Amiodarone 150 MG/3 ML VIAL ONE (18:22)
[2024-10-08] MEDS ORDERED: Artificial Tear Ophth Sol 15 ML BOT EA EYE PRN (18:34)
[2024-10-08] MEDS ORDERED: Moisturizing Cream (Eucerin) 113 GM JAR TOP PRN (18:34)
[2024-10-08] MEDS ORDERED: Ondansetron PF 4 MG/2 ML Vial IVP PRN (18:34)
[2024-10-08] MEDS ORDERED: Amiodarone 150 MG in Dextrose 5% in Water 100 ML IVPB SCH (18:45)
[2024-10-08] MEDS ORDERED: NOREPINEPHRINE 8 MG/250 ML-D5W 250 ML ONE (18:57)
[2024-10-08] MEDS ORDERED: Vancomycin 1 GM in Sodium Chloride 0.9% 250 ML 300 ML IVPB SCH (21:00)
[2024-10-08] MEDS ORDERED: Electrolyte Replacement Protocol 1 EACH FS PRN (21:42)
[2024-10-08] MEDS: Lactated Ringer's 1,000 ML IV SCH (23:16)
[2024-10-08] MEDS: Sodium Bicarb 50 mEq/50 ML VIAL IVP SCH (23:19)
[2024-10-08] MEDS: Cefepime 2 GM in Sodium Chloride 0.9% 100 ML IVPB SCH (23:20)
[2024-10-08] MEDS: Famotidine/PF 20 mg/2ml Vial SLOW IVP SCH (23:23)
[2024-10-08] MEDS: Famotidine 20 MG TAB PO SCH (23:23)
[2024-10-08] MEDS: Aspirin 300 MG Suppository PR SCH (23:24)
[2024-10-09 01:33] LABS: Troponin I 0.034 ng/mL (< 0.028)
[2024-10-09] MEDS: Vancomycin HCl 750 MG in Sodium Chloride 0.9% 250 ML 250 ML IVPB SCH (05:46)
[2024-10-09] MEDS: Lactated Ringer's 1,000 ML IV SCH (05:47)
[2024-10-09 06:13] LABS: Hematocrit 37.6 % (42.0-52.0); Hemoglobin 12.7 g/dL (14.0-18.0); Mean Corpuscular HGB CONC 33.8 g/dL (32.0-36.0); Mean Corpuscular Hemoglobin 33.1 pg (27.0-31.0); Mean Corpuscular Volume 97.9 fL (78.0-98.0); Mean Platelet Volume 8.5 fL (7.4-10.4); Platelet Count 184 10x3/uL (130-400); RBC Distribution Width 14.8 % (11.5-14.5); Red Blood Cell (RBC) Count 3.84 mill/uL (4.70-6.10)
[2024-10-09 06:20] LABS: Vancomycin, Random 16.4 ug/mL (See Comment)
[2024-10-09 06:23] LABS: Anion Gap 10 mmol/L (10-20); BUN (Urea Nitrogen) 15 mg/dL (8.4-25.7); Calc. Creatinine Clearance 65 mL/min (70-130); Calcium 8.3 mg/dL (7.8-10.44); Carbon Dioxide 21 mmol/L (23-31); Chloride 109 mmol/L (98-107); Estimated GFR 86; Glucose 105 mg/dL (83-110); Potassium 3.7 mmol/L (3.5-5.1); Sodium 136 mmol/L (136-145)
[2024-10-09 06:33] LABS: Anisocytosis SLIGHT = 6-15 cells HPF (0-5); Band 6 % (5-11); Eosinophils 6 % (0-10); Large Platelets 12.3 % (0-5); Lymphocytes 57 % (21-51); Monocytes 23 % (0-10); Neutrophil 3 % (42-75); Nucleated RBC (Manual Ct) 2 % (0); Platelet Adequacy Comment Platelets Normal; Poikilocytosis SLIGHT = 6-15 cells HPF (0-5); Polychromasia SLIGHT = 2-3 cells HPF (0-2); Smudge Cells 43.1 %
[2024-10-09] MEDS ORDERED: Aspirin 300 MG Suppository PR SCH (09:00)
[2024-10-09] MEDS ORDERED: Aspirin 325 mg Enteric Coated Tablet PO SCH ×2 (09:00→09:29)
[2024-10-09] MEDS ORDERED: FLU (Fluad Triv) TS24-25 (65UP)/MF59C/PF 45 MCG/0.5 ML Syringe IM ONE (09:00)
[2024-10-09] MEDS: Tamsulosin HCl 0.4 MG CAP PO SCH (10:00)
[2024-10-09] MEDS: Folic Acid 1 MG TAB PO SCH (10:00)
[2024-10-09] MEDS: Aspirin 81 mg Enteric Coated Tablet PO SCH (10:00)
[2024-10-09 15:32] VITALS: BMI 20.6
[2024-10-09] MEDS: Lorazepam 2 MG/ML VIAL SLOW IVP SCH (17:25)
[2024-10-09] MEDS: Haloperidol Lactate 5 MG/ML VIAL SLOW IVP SCH (20:00)
[2024-10-09] MEDS: Melatonin 3 MG TAB PO PRN (20:50)
[2024-10-09 21:38] LABS: Bilirubin Negative (Negative); Blood, Urine Negative (Negative); Clarity Clear (Clear); Glucose, Urine (Dipstick) Normal (Negative); Ketone, Urine Negative (Negative); Leukocyte 250 Leu/uL (Negative); Nitrite Negative (Negative); Protein, Urine (Dipstick) 20 mg/dL (Neg-Trace); RBC/HPF None Seen HPF (0-3); Specific Gravity, Urine 1.021 (1.002-1.036); Squamous Epithelial None Seen HPF (0-3)
[2024-10-09 21:48] LABS: Bacteria/HPF 1+ HPF (None Seen)
[2024-10-10 04:55] LABS: Hematocrit 31.8 % (42.0-52.0); Hemoglobin 10.8 g/dL (14.0-18.0); Mean Corpuscular Hemoglobin 33.2 pg (27.0-31.0); Mean Corpuscular Volume 97.8 fL (78.0-98.0); Mean Platelet Volume 8.6 fL (7.4-10.4); Platelet Count 176 10x3/uL (130-400); RBC Distribution Width 14.5 % (11.5-14.5); Red Blood Cell (RBC) Count 3.25 mill/uL (4.70-6.10)
[2024-10-10 05:18] LABS: Anion Gap 9 mmol/L (10-20); BUN (Urea Nitrogen) 14 mg/dL (8.4-25.7); Calc. Creatinine Clearance 84 mL/min (70-130); Calcium 8.1 mg/dL (7.8-10.44); Carbon Dioxide 21 mmol/L (23-31); Chloride 109 mmol/L (98-107); Estimated GFR 93; Glucose 102 mg/dL (83-110); Potassium 3.5 mmol/L (3.5-5.1); Sodium 135 mmol/L (136-145)
[2024-10-10 05:37] LABS: Anisocytosis SLIGHT = 6-15 cells HPF (0-5); Band 5 % (5-11); Eosinophils 13 % (0-10); Hypochromia SLIGHT = 6-15 cells HPF (0-5); Large Platelets 5.9 % (0-5); Lymphocytes 37 % (21-51); Monocytes 26 % (0-10); Neutrophil 12 % (42-75); Platelet Adequacy Comment Platelets Normal; Poikilocytosis SLIGHT = 6-15 cells HPF (0-5); Polychromasia SLIGHT = 2-3 cells HPF (0-2); Reactive Lymphocytes 3 % (0-10); Smudge Cells 61.8 %
[2024-10-10] MEDS: VANCOMYCIN 1.25 GM/250 ML BAG 1.25 GM in Premix 1 BAG IVPB SCH (05:57)
[2024-10-10] MEDS: Potassium Bicarbonate/Cit Ac 20 MEQ TAB PO SCH (09:31)
[2024-10-10] MEDS: Magnesium 2 GM/50 ML(in water) 2 GM in Premix 1 BAG IVPB SCH (09:31)
[2024-10-10] MEDS: Apixaban 5 MG TAB PO SCH (09:32)
[2024-10-10] MEDS ORDERED: Melatonin 3 MG TAB PO PRN (22:32)
[2024-10-11] MEDS: Cefdinir 300 MG CAP PO SCH ×2 (01:13→09:01)
[2024-10-11] MEDS: Sodium Chloride 1 GM TAB PO SCH (09:01)
[2024-10-11] MEDS: Saccharomyces boulardii 250 MG CAP PO SCH (09:02)
[2024-10-11 10:01] LABS: Hematocrit 35.2 % (42.0-52.0); Hemoglobin 11.8 g/dL (14.0-18.0); Mean Corpuscular HGB CONC 33.5 g/dL (32.0-36.0); Mean Corpuscular Hemoglobin 33.1 pg (27.0-31.0); Mean Corpuscular Volume 98.9 fL (78.0-98.0); Mean Platelet Volume 8.7 fL (7.4-10.4); Platelet Count 200 10x3/uL (130-400); RBC Distribution Width 14.3 % (11.5-14.5); Red Blood Cell (RBC) Count 3.56 mill/uL (4.70-6.10)
[2024-10-11 10:19] LABS: Anion Gap 10 mmol/L (10-20); BUN (Urea Nitrogen) 6 mg/dL (8.4-25.7); Calc. Creatinine Clearance 97 mL/min (70-130); Calcium 8.3 mg/dL (7.8-10.44); Carbon Dioxide 22 mmol/L (23-31); Chloride 104 mmol/L (98-107); Estimated GFR 97; Glucose 88 mg/dL (83-110); Potassium 3.7 mmol/L (3.5-5.1); Sodium 132 mmol/L (136-145)
[2024-10-11 10:24] LABS: Anion Gap 10 mmol/L (10-20); BUN (Urea Nitrogen) 6 mg/dL (8.4-25.7); Calc. Creatinine Clearance 103 mL/min (70-130); Calcium 8.1 mg/dL (7.8-10.44); Carbon Dioxide 21 mmol/L (23-31); Chloride 105 mmol/L (98-107); Estimated GFR 99; Glucose 90 mg/dL (83-110); Potassium 3.7 mmol/L (3.5-5.1); Sodium 132 mmol/L (136-145)
[2024-10-11 10:31] LABS: Band 2 % (5-11); Eosinophils 8 % (0-10); Large Platelets 3.1 % (0-5); Lymphocytes 46 % (21-51); Monocytes 14 % (0-10); Neutrophil 28 % (42-75); Platelet Adequacy Comment Platelets Normal; Poikilocytosis SLIGHT = 6-15 cells HPF (0-5); Polychromasia SLIGHT = 2-3 cells HPF (0-2); Smudge Cells 36.1 %
[2024-10-11 10:52] LABS: Thyroid Stimulating Hormone 1.0355 uIU/mL (0.35-4.94)
[2024-10-11 11:42] VITALS: BP 128/73; TEMP 98
[2024-10-11] MEDS: Magnesium 2 GM/50 ML(in water) 2 GM in Premix 1 BAG IVPB SCH (13:53)
== END 2024-10-11 18:14 | disposition hospice, inpatient (51) | DRG 871 ==
LOC: ERS 12:13 → ERHOLD 16:22 → CCU 21:25 → PCU 10-09 14:25
PROVIDERS: ADMIT Family Medicine; ATTEND Internal Medicine
DX: A41.9 Sepsis, unspecified organism (principal); I21.A1 Myocardial infarction type 2; N39.0 Urinary tract infection, site not specified; F03.911 Unspecified dementia, unspecified severity, with agitation; G93.49 Other encephalopathy; E87.20 Acidosis, unspecified; E87.1 Hypo-osmolality and hyponatremia; Z66 Do not resuscitate; Z51.5 Encounter for palliative care; N40.0 Benign prostatic hyperplasia without lower urinary tract symptoms; R65.20 Severe sepsis without septic shock; I50.9 Heart failure, unspecified; R29.6 Repeated falls; K40.90 Unilateral inguinal hernia, without obstruction or gangrene, not specified as recurrent; D50.9 Iron deficiency anemia, unspecified; I48.0 Paroxysmal atrial fibrillation; I11.0 Hypertensive heart disease with heart failure; Z88.5 Allergy status to narcotic agent; T46.2X5A Adverse effect of other antidysrhythmic drugs, initial encounter; X58.XXXA Exposure to other specified factors, initial encounter
CPT/HCPCS: 36415; 36416; 51701; 70450; 71045; 80048; 80053; 80181; 80202; 81001; 82607; 82805; 83605; 83735; 83880; 84443; 84484; 85025; 85060; 85610; 85730; 87040; 87077; 87086; 87186; 87428; 88184; 93005; 93010; 93306; 96365; 96366; 96367; 96368; 96372; 96375; 96376; J0171; J0282; J0613; J0692; J1630; J2060; J2250; J3370; J3475; J3490; J7050; J7120